=== PATIENT | male | born 1945 | race Caucasian/White ===

== ENCOUNTER 2017-11-01 16:33 | Observation (INO) | payer OTHER ==
[~2017-11-01] VITALS: Ht 167.6 cm; Wt 92.1 kg
[~2017-11-01 16:33] MED LIST: AMLODIPINE BESY10 MG PO; CIPRO500 MG PO; FLEXERIL10 MG PO; FLOMAX0.4 MG PO; Flexeril PO; HYDROCODON-ACE1 EAC7 PO; LIPITOR20 MG PO; LO-DOSE ASPIRIN81 M2 PO; NORCO 5/3251 TABLET PO; PREVACID15 MG PO; SUPER B-50 COM1 EACH PO; VALSARTAN-HCTZ1 EAC1 PO; Vicodin,Norco 5/325 PO; ZOFRAN ODT4 MG PO; ZYRTEC10 M2 PO
[2017-11-01 17:49] LABS: BASOPHIL (%) 0.7 % (0-1); BASOPHIL COUNT 0.1 K/uL (0-0.1); EOSINOPHIL (%) 3.2 % (0-5); EOSINOPHIL COUNT 0.3 K/uL (0-0.3); HEMATOCRIT 38.3 % (38.0-50.0); HEMOGLOBIN 13.5 G/DL (12.5-16.6); IMMATURE GRANULOCYTE (%) 0.3 % (0.0-0.7); LYMPHOCYTE (%) 19.7 % (15-42); LYMPHOCYTE COUNT 1.8 K/uL (1.0-2.8); MCH 29.3 PG (29.0-34.0); MCHC 35.2 G/DL (30.0-36.0); MCV 83.3 FL (86-99); MONOCYTE (%) 11.1 % (3-12); NEUTROPHIL COUNT 5.8 K/uL (1.8-6.4); PLATELET COUNT 267 K/uL (156-360); RBC DIS.WIDTH-CV 13.9 % (11.8-14.6); WHITE BLOOD COUNT 8.9 K/uL (4.1-10.2)
[2017-11-01 17:59] LABS: ALBUMIN 4.2 g/dL (3.2-4.8); CHLORIDE 103 mEq/L (99-109); POTASSIUM 3.5 mEq/L (3.7-5.4); SODIUM 140 mEq/L (136-147)
[2017-11-01 18:01] LABS: GLUCOSE 121 mg/dL (70-99)
[2017-11-01 18:02] LABS: TOTAL PROTEIN 7.2 g/dL (6.4-8.3)
[2017-11-01 18:03] LABS: TOTAL BILIRUBIN 0.5 mg/dL (0.0-1.0)
[2017-11-01 18:05] LABS: ALKALINE PHOSPHATASE 118 IU/L (3-129); GFR ESTIMATE (CALCULATED) > 59 mL/min/ (58.99-99999)
[2017-11-01 18:06] LABS: UREA NITROGEN (BUN) 17 mg/dL (9-23)
[2017-11-01 18:07] LABS: AST (GOT) 18 IU/L (2-34)
[2017-11-01 18:08] LABS: ALT (GPT) 22 IU/L (3-49); LIPASE 28 U/L (1.0-51.0)
[2017-11-01 18:10] LABS: TROP-I INTERPRETATION NEGATIVE; TROPONIN-I < 0.01 ng/mL (0.0-0.30)
[2017-11-01] MEDS ORDERED: GERITOL COMP1 TABLET PO (19:14)
[2017-11-01] MEDS ORDERED: COMBIGAN O20 DROP/5 BOTH EYES (19:14)
[2017-11-01 21:10] VITALS: BP 237/82
[2017-11-02 00:22] VITALS: BP 109/64
[2017-11-02 01:25] LABS: TROP-I INTERPRETATION NEGATIVE; TROPONIN-I < 0.01 ng/mL (0.0-0.30)
[2017-11-02 04:00] VITALS: BP 118/70
[2017-11-02 06:40] LABS: TROP-I INTERPRETATION NEGATIVE; TROPONIN-I < 0.01 ng/mL (0.0-0.30)
[2017-11-02 06:42] LABS: HDL CHOLESTEROL 40 MG/DL (Desirable>=40); LDL CHOLESTEROL 68 mg/dL (Desirable<100); NON-HDL CHOLESTEROL 91 mg/dL (Desirable<160); TOTAL CHOLESTEROL 131 mg/dL (Desirable<200); TRIGLYCERIDES 116 MG/DL (Normal: <150)
[2017-11-02 11:09] VITALS: BP 142/78
[2017-11-02] MEDS ORDERED: ADVIL200 MG PO (13:56)
== END 2017-11-02 16:48 | disposition home or self-care (01) ==
LOC: EME 16:33 → EDOF 20:16 → ENRESERV 20:33 → 4SOUTH 21:06
PROVIDERS: Emergency Medicine; Physician Assistant Medical
DX: R07.89 Other chest pain (principal); R94.31 Abnormal electrocardiogram [ECG] [EKG]; E87.6 Hypokalemia; I10 Essential (primary) hypertension; E78.5 Hyperlipidemia, unspecified; H40.9 Unspecified glaucoma; K76.0 Fatty (change of) liver, not elsewhere classified; K80.20 Calculus of gallbladder without cholecystitis without obstruction; K21.9 Gastro-esophageal reflux disease without esophagitis; E66.3 Overweight; Z68.32 Body mass index [BMI] 32.0-32.9, adult; Z79.82 Long term (current) use of aspirin; Z82.49 Family history of ischemic heart disease and other diseases of the circulatory system; Z85.46 Personal history of malignant neoplasm of prostate; Z87.442 Personal history of urinary calculi; Z86.19 Personal history of other infectious and parasitic diseases; Z80.0 Family history of malignant neoplasm of digestive organs; Z91.041 Radiographic dye allergy status; Z88.5 Allergy status to narcotic agent; Z88.8 Allergy status to other drugs, medicaments and biological substances
CPT/HCPCS: 71046; 71250; 74176; 76705; 80053; 80061; 83690; 84484; 85025; 93005; 99281; 99285; G0378; J1200; J1644; J1885; J3010; J3480; J7040

== ENCOUNTER 2017-12-16 06:55 | Day surgery (SDC) | payer OTHER ==
[~2017-12-16] VITALS: Ht 167.6 cm; Wt 91.6 kg
[~2017-12-16 06:55] MED LIST changes: +ADVIL200 MG PO; +COMBIGAN O20 DROP/5 BOTH EYES; +GERITOL COMP1 TABLET PO
[2017-12-16 07:23] VITALS: BP 124/68
[2017-12-16] MEDS ORDERED: NORCO 5/3251 TABLET PO (10:38)
[2017-12-16 12:02] VITALS: BP 123/64
[2017-12-16 13:10] VITALS: BP 115/67
== END 2017-12-16 13:25 | disposition home or self-care (01) ==
LOC: SDC 06:55
PROC: 0FT44ZZ Resection of Gallbladder, Percutaneous Endoscopic Approach (ICD-10-PCS; principal; 2017-12-16)
DX: K80.10 Calculus of gallbladder with chronic cholecystitis without obstruction (principal); K66.0 Peritoneal adhesions (postprocedural) (postinfection); K21.9 Gastro-esophageal reflux disease without esophagitis; I10 Essential (primary) hypertension; E03.9 Hypothyroidism, unspecified; E78.5 Hyperlipidemia, unspecified; Z85.46 Personal history of malignant neoplasm of prostate; Z79.82 Long term (current) use of aspirin; Z88.5 Allergy status to narcotic agent; Z88.8 Allergy status to other drugs, medicaments and biological substances; Z91.041 Radiographic dye allergy status
CPT/HCPCS: 88304; J1100; J1170; J2250; J2405; J2550; J2710; J3010; J7643; S0074